=== PATIENT | female | born 1980 | race Hispanic/Latino ===

== ENCOUNTER 2022-08-19 08:48 | Emergency (ER) | payer SELFPAY ==
[~2022-08-19] VITALS: Ht 160 cm; Wt 68.0 kg
[2022-08-19] MEDS ORDERED: DICYCLOMINE HCL20 MG PO (09:08)
== END 2022-08-19 09:11 | disposition home or self-care (01) ==
LOC: ER 08:53
DX: R10.32 Left lower quadrant pain (principal); E28.2 Polycystic ovarian syndrome
CPT/HCPCS: 99282

== ENCOUNTER 2024-04-27 16:32 | Emergency (ER) | payer BC, OTHER ==
[~2024-04-27] VITALS: Ht 160 cm; Wt 76.2 kg
[~2024-04-27 16:32] MED LIST: CEFDINIR300 MG PO; DICYCLOMINE HCL20 MG PO; ONDANSETRON ODT4 MG SL
[2024-04-27] MEDS: SODIUM CHLORIDE 0.9% 1000ML 1,000 ML IV ONE (17:29)
[2024-04-27] MEDS: ACETAMINOPHEN 325 MG TAB PO ONE (17:29)
[2024-04-27 17:32] LABS: BASOPHILS % 0.6 % (0.0-1.0); EOSINOPHILS # (AUTO) 0.1 (0.0-0.4); EOSINOPHILS % 1.8 % (0.0-6.0); HEMATOCRIT 32.8 % (34.2-44.1); HEMOGLOBIN 9.5 g/dL (12.0-16.0); LYMPHOCYTES # (AUTO) 0.9 (1.0-3.2); LYMPHOCYTES % 13.1 % (18.0-39.1); MEAN CORPUSCULAR HEMOGLOBIN 21.3 pg (28-32); MEAN CORPUSCULAR VOLUME 73.4 fL (81-99); NEUTROPHILS # (AUTO) 4.4 (2.1-6.9); NEUTROPHILS % 68.2 % (38.7-80.0); PLATELET COUNT 208 x10e3/uL (140-360); RED BLOOD COUNT 4.47 x10e6/uL (3.6-5.1); RED CELL DISTRIBUTION WIDTH 18.8 % (11.7-14.4); WHITE BLOOD COUNT 6.49 x10e3/uL (4.8-10.8)
[2024-04-27 17:44] LABS: INR 1.02; PROTHROMBIN TIME 13.9 seconds (11.9-14.5)
[2024-04-27 17:45] LABS: PARTIAL THROMBOPLASTIN TIME 29.7 seconds (23.8-35.5)
[2024-04-27 17:53] LABS: ANION GAP 17.3 mmol/L (8-16); BILIRUBIN,TOTAL 0.3 mg/dL (0.2-1.2); CALCIUM 8.8 mg/dL (8.4-10.2); CREATININE, SERUM 0.73 mg/dL (0.57-1.11); POTASSIUM 4.3 mmol/L (3.5-5.1); TOTAL PROTEIN 7.6 g/dL (6.5-8.1)
[2024-04-27 18:00] LABS: ALBUMIN 3.7 g/dL (3.5-5.0)
[2024-04-27] MEDS ORDERED: SODIUM CHLORIDE 0.9% 100 ML ONE (18:08)
[2024-04-27] MEDS ORDERED: IOPAMIDOL 370 MG/ML 100 ML INFUS..BTL INJ ONE (18:08)
[2024-04-27 18:39] VITALS: PULSE 105; RESP 18; TEMP 100.3
[2024-04-27 18:42] LABS: INFLUENZAE A&B ANTIGEN (RAPID) NEGATIVE (NEGATIVE); RESPIRATORY SYNC. VIRUS NEGATIVE (NEGATIVE)
[2024-04-27 18:46] LABS: CLARITY,URINE CLEAR (CLEAR); COLOR,URINE STRAW (YELLOW); LEUKOCYTE ESTERASE ,URINE NEGATIVE (NEGATIVE); PH,URINE 7 (5 - 7)
[2024-04-27 18:47] LABS: BILIRUBIN,URINE NEGATIVE (NEGATIVE); GLUCOSE, URINE NEGATIVE (NEGATIVE); KETONES,URINE NEGATIVE (NEGATIVE); NITRITE,URINE NEGATIVE (NEGATIVE); PROTEIN,URINE DIPSTICK NEGATIVE (NEGATIVE); URINE UROBILINOGEN 0.2 mg/dL (0.2 - 1)
[2024-04-27] MEDS: ALBUTEROL/IPRATROPIUM 3 ML NEB NEB STA (18:47)
[2024-04-27 18:48] VITALS: PULSE 84; RESP 16; O2SAT 96
[2024-04-27 18:49] LABS: BACTERIA,URINE FEW /HPF; EPITHELIAL CELLS,URINE MODERATE /LPF; RBC,URINE 0-5 /HPF (0-5); WBC,URINE (MAN) 0-5 /HPF (0-5)
[2024-04-27] MEDS: METHYLPREDNISOLONE SOD SUCC 125 MG/2ML VIAL IV STA (18:55)
[2024-04-27] MEDS ORDERED: VENTOLIN HFA18 GM INH (18:55)
[2024-04-27] MEDS ORDERED: PREDNISONE20 MG PO (18:55)
[2024-04-27] MEDS ORDERED: PAXLOVID 300-11 EAC1 PO (18:56)
[2024-04-27 19:16] VITALS: BP 110/60; PULSE 101; RESP 16; TEMP 99.9; O2SAT 100
== END 2024-04-27 19:17 | disposition home or self-care (01) ==
LOC: ER 17:58
DX: R50.9 Fever, unspecified (principal); U07.1 COVID-19; J98.8 Other specified respiratory disorders; R05.9 Cough, unspecified; R94.31 Abnormal electrocardiogram [ECG] [EKG]
CPT/HCPCS: 36415; 71046; 71260; 80053; 81001; 83518; 83605; 84702; 85025; 85610; 85730; 87040; 87070; 87086; 87400; 87420; 93005; 94640; 94799; 99284; J2919; J7030; J7050; Q9967; U0002